=== PATIENT | female | born 1975 | race Caucasian/White ===

== ENCOUNTER 2018-05-07 15:59 | Emergency (ER) | payer BC ==
[2018-05-07 16:12] VITALS: TEMP 98.5
[2018-05-07] MEDS ORDERED: SODIUM CHLORIDE 0.9% 1,000 ML IV STA (17:11)
[2018-05-07] MEDS ORDERED: KETOROLAC 30 MG/ML 1 ML VIAL IVP STA (17:11)
[2018-05-07 17:59] LABS: Basophils % (A) 0 %; Eosinophils # (A) 0.1 k/uL (0-0.7); Eosinophils % (A) 1 %; HCT 35.7 % (34.0-46.0); HGB 11.5 gm/dL (11.4-16.0); Hypochromasia Slight; Lymphocytes # (A) 2.1 k/uL (1.0-4.8); Lymphocytes % (A) 28 %; MCHC 32.1 g/dL (31.0-37.0); MCV 81.1 fL (80.0-100.0); Mean Platelet Volume 7.1; Monocytes # (A) 0.5 k/uL (0-1.0); Monocytes % (A) 6 %; Neutrophils # (A) 4.6 k/uL (1.3-7.7); Neutrophils % (A) 62 %; Platelet Count 449 k/uL (150-450); RBC 4.41 m/uL (3.80-5.40); RDW 15.6 % (11.5-15.5); WBC 7.4 k/uL (3.8-10.6)
[2018-05-07 18:05] LABS: Albumin 4.2 g/dL (3.5-5.0); Calcium 9.8 mg/dL (8.4-10.2); Potassium 4.4 mmol/L (3.5-5.1); Total Bilirubin 0.3 mg/dL (0.2-1.3); Total Protein 7.5 g/dL (6.3-8.2)
[2018-05-07 18:06] LABS: Appearance,Urine Clear (Clear); Bacteria,Urine Rare /hpf; Bilirubin,Urine Negative (Negative); Blood,Urine Moderate (Negative); Color,Urine Yellow; Glucose,Urine (UA) Negative (Negative); Ketones,Urine Negative (Negative); Leukocyte Esterase,Urine Trace (Negative); Mucus,Urine Few /hpf; Nitrite,Urine Negative (Negative); Protein,Urine Trace (Negative); RBC,Urine 1 /hpf (0-5); Specific Gravity,Urine 1.018 (1.001-1.035); Squamous Epithelial Cell,Urine <1 /hpf (0-4); WBC,Urine 6 /hpf (0-5)
--- NOTE | 2018-05-07 18:58 | CT ---
EXAMINATION TYPE: CT abdomen pelvis wo con DATE OF EXAM: 05/07/2018 COMPARISON: None HISTORY: Left flank pain. CT DLP: 464.9 mGycm Automated exposure control for dose reduction was used. TECHNIQUE: Helical acquisition of images from the lung bases through the pelvis. FINDINGS: Lack of intravenous contrast could compromise sensitivity. Small umbilical hernia contains fat. LUNG BASES: No significant abnormality is appreciated. AORTA: No significant abnormality is appreciated. LIVER/GB: No significant abnormality is appreciated. PANCREAS: No significant abnormality is seen. SPLEEN: No significant abnormality is seen. ADRENALS: No significant abnormality is seen. KIDNEYS: Multiple flake-like calcifications are present in the bilateral kidneys, approximately 10-20 calcifications bilaterally, no evident ureteral calculus. REPRODUCTIVE ORGANS: No significant abnormality is seen. URINARY BLADDER: No significant abnormality is seen. BOWEL: No significant abnormality is seen. The appendix is normal. FREE AIR: No Free Air is visible. ASCITES: None visible. PELVIC ADENOPATHY: None visualized. RETROPERITONEAL ADENOPATHY: No Retroperitoneal Adenopathy visible. OSSEOUS STRUCTURES: No significant abnormality is seen. IMPRESSION: BILATERAL NONOBSTRUCTIVE NEPHROLITHIASIS. NONCONTRAST EXAM.
--- NOTE | 2018-05-07 19:17 | ED ---
Abdominal Pain HPI - General Chief Complaint: Abdominal Pain Stated Complaint: poss kidney stones Time Seen by Provider: 05/07/18 16:39 Source: patient, RN notes reviewed, old records reviewed Mode of arrival: ambulatory Limitations: no limitations - History of Present Illness Initial Comments: This is a 42-year-old female the ER for evaluation of pain abdominal pain which she presented to emetics rest 4, patient had blood in her urine emetics rest sent ER for evaluation of flank pain left flank pain maybe possible kidney stone pain. Patient currently denying any significant abdominal pain, no nausea vomiting, no fevers no diarrhea or difficulty with urination. No blood in her urine MD Complaint: abdominal pain, flank pain (() -: days(s) Location: LLQ, suprapubic Radiation: none Migration to: no migration Severity: mild Severity scale (1-10): 1 Quality: aching Consistency: now resolved Improves With: nothing Worsens With: nothing Associated Symptoms: denies other symptoms - Related Data Home Medications Medication Instructions Recorded Confirmed No Known Home Medications 05/07/18 05/07/18 Allergies Allergy/AdvReac Type Severity Reaction Status Date / Time No Known Allergies Allergy Verified 05/07/18 16:30 Review of Systems ROS Statement: Those systems with pertinent positive or pertinent negative responses have been documented in the HPI. ROS Other: All systems not noted in ROS Statement are negative. Past Medical History Past Medical History: No Reported History History of Any Multi-Drug Resistant Organisms: None Reported Past Surgical History: No Surgical Hx Reported Past Psychological History: No Psychological Hx Reported Smoking Status: Current every day smoker Past Alcohol Use History: None Reported Past Drug Use History: None Reported General Exam Limitations: no limitations General appearance: alert, in no apparent distress Head exam: Present: atraumatic, normocephalic, normal inspection Eye exam: Present: normal appearance, PERRL, EOMI. Absent: scleral icterus, conjunctival injection, periorbital swelling ENT exam: Present: normal exam, mucous membranes moist Neck exam: Present: normal inspection. Absent: tenderness, meningismus, lymphadenopathy Respiratory exam: Present: normal lung sounds bilaterally. Absent: respiratory distress, wheezes, rales, rhonchi, stridor Cardiovascular Exam: Present: regular rate, normal rhythm, normal heart sounds. Absent: systolic murmur, diastolic murmur, rubs, gallop, clicks GI/Abdominal exam: Present: soft, normal bowel sounds. Absent: distended, tenderness, guarding, rebound, rigid Extremities exam: Present: normal inspection, full ROM, normal capillary refill. Absent: tenderness, pedal edema, joint swelling, calf tenderness Back exam: Present: normal inspection Neurological exam: Present: alert, oriented X3, CN II-XII intact Psychiatric exam: Present: normal affect, normal mood Skin exam: Present: warm, dry, intact, normal color. Absent: rash Course Vital Signs 05/07/18 05/07/18 16:09 19:26 Temperature 98.5 F Pulse Rate 79 82 Respiratory 18 16 Rate Blood Pressure 123/81 125/50 O2 Sat by Pulse 99 100 Oximetry - Reevaluation(s) Reevaluation #1: Transfer paperwork reviewed Patient having no pain Medical Decision Making - Medical Decision Making 40 female the ER for evaluation of kidney stones. CT head and pelvis negative for acute disease urine negative patient can be discharged home - Lab Data Result diagrams: 05/07/18 17:20 05/07/18 17:20 Lab Results 05/07/18 05/07/18 05/07/18 Range/Units 17:20 17:20 17:20 WBC 7.4 (3.8-10.6) k/uL RBC 4.41 (3.80-5.40) m/uL Hgb 11.5 (11.4-16.0) gm/dL Hct 35.7 (34.0-46.0) % MCV 81.1 (80.0-100.0) fL MCH 26.0 (25.0-35.0) pg MCHC 32.1 (31.0-37.0) g/dL RDW 15.6 H (11.5-15.5) % Plt Count 449 (150-450) k/uL Neutrophils % 62 % Lymphocytes % 28 % Monocytes % 6 % Eosinophils % 1 % Basophils % 0 % Neutrophils # 4.6 (1.3-7.7) k/uL Lymphocytes # 2.1 (1.0-4.8) k/uL Monocytes # 0.5 (0-1.0) k/uL Eosinophils # 0.1 (0-0.7) k/uL Basophils # 0.0 (0-0.2) k/uL Hypochromasia Slight Sodium 139 (137-145) mmol/L Potassium 4.4 (3.5-5.1) mmol/L Chloride 106 (98-107) mmol/L Carbon Dioxide 26 (22-30) mmol/L Anion Gap 7 mmol/L BUN 15 (7-17) mg/dL Creatinine 1.04 (0.52-1.04) mg/dL Est GFR (CKD-EPI)AfAm 77 (>60 ml/min/1.73 sqM) Est GFR (CKD-EPI)NonAf 67 (>60 ml/min/1.73 sqM) Glucose 94 (74-99) mg/dL Calcium 9.8 (8.4-10.2) mg/dL Total Bilirubin 0.3 (0.2-1.3) mg/dL AST 20 (14-36) U/L ALT 22 (9-52) U/L Alkaline Phosphatase 92 (38-126) U/L Total Protein 7.5 (6.3-8.2) g/dL Albumin 4.2 (3.5-5.0) g/dL Amylase 58 (30-110) U/L Lipase 129 (23-300) U/L Urine Color Yellow Urine Appearance Clear (Clear) Urine pH 6.0 (5.0-8.0) Ur Specific [place] 1.018 (1.001-1.035) Urine Protein Trace H (Negative) Urine Glucose (UA) Negative (Negative) Urine Ketones Negative (Negative) Urine Blood Moderate H (Negative) Urine Nitrite Negative (Negative) Urine Bilirubin Negative (Negative) Urine Urobilinogen 3.0 (<2.0) mg/dL Ur Leukocyte Esterase Trace H (Negative) Urine RBC 1 (0-5) /hpf Urine WBC 6 H (0-5) /hpf Ur Squamous Epith Cells <1 (0-4) /hpf Urine Bacteria Rare H (None) /hpf Urine Mucus Few H (None) /hpf - Radiology Data Radiology results: report reviewed (CT abdomen pelvis negative for acute disease ), image reviewed Disposition Clinical Impression: Abdominal pain Disposition: HOME SELF-CARE Condition: Good Instructions: Abdominal Pain (ED) Is patient prescribed a controlled substance at d/c from ED?: No Referrals: None,Stated [Primary Care Provider] - 1-2 days
[2018-05-07 19:27] VITALS: BP 125/50; PULSE 82; RESP 16
== END 2018-05-07 19:28 | disposition home or self-care (01) ==
LOC: EC 15:59
DX: R10.32 Left lower quadrant pain (principal); R31.9 Hematuria, unspecified; F17.200 Nicotine dependence, unspecified, uncomplicated
CPT/HCPCS: 36415; 80053; 82150; 83690; 85025; 81001; 87086; 74176; 99284; 96374; 96361; J1885

== ENCOUNTER → 2019-06-27 | Outpatient (CLI) | payer OTHER ==
--- NOTE | 2019-06-27 11:07 | CT ---
EXAMINATION TYPE: CT chest w con DATE OF EXAM: 06/27/2019 COMPARISON: None HISTORY: 43-year-old female with Chest pains TECHNIQUE: Contiguous axial scanning of the chest after the administration of 100 mL of Isovue 300. Coronal/sagittal reconstructions performed. CT DLP: 226.6mGycm. Automatic exposure control utilized for a dose reduction. FINDINGS: Heart normal size without pericardial effusion. Aorta normal caliber with conventional arch vessel branching anatomy. There is anterior mediastinal nodularity measuring 1.2 cm and 1.3 cm. A small 6 mm focus of calcifica tion is present here as well. Otherwise, no additional thoracic lymphadenopathy. No consolidation or pleural effusion. Tiny hiatal hernia. A couple hypodensities measuring up to 9 mm superior and lateral aspect of the sp sophy probably cysts. They seem to have been subtly present in retrospect on 05/07/2018. However, a we dge-shaped area of peripheral hypodensity is also present along the lower pole, also appears to prese nt previously. Possible contour variation or old area of peripheral infarct. Bilateral renal calculi measuring up to 4 mm. Area of heterogeneous enhancement is present along the posterior aspect of the upper pole left kidney . Bones: Mild degenerative change at the sternomanubrial joint. No osseous destructive process. IMPRESSION: 1. No acute pulmonary process. 2. Anterior mediastinal nodularity measuring 1.3 cm and 1.2 cm. Mildly enlarged nonspecific mediastin al lymph nodes are possible. Thymic remnants or other soft tissue of thymic origin are also possible. Recommend 3 month follow-up CT to ensure stability. 3. A vague area of heterogeneous hypodensity medial upper pole left kidney. Recommend correlation to exclude pyelonephritis. If no clinical signs/symptoms of pyelonephritis, nonemergent follow-up ultras ound or renal mass protocol CT/MRI would be recommended. 4. Bilateral nephrolithiasis. 5. Tiny hiatal hernia.
== END | disposition home or self-care (01) ==
LOC: RADCTMAIN 10:21
PROVIDERS: ATTEND Family Medicine
DX: K44.9 Diaphragmatic hernia without obstruction or gangrene (principal); J98.59 Other diseases of mediastinum, not elsewhere classified; J44.9 Chronic obstructive pulmonary disease, unspecified
CPT/HCPCS: 71260; Q9967

== ENCOUNTER → 2021-01-06 | Outpatient (CLI) | payer BC ==
--- NOTE | 2021-01-07 09:41 | CT ---
EXAMINATION TYPE: CT abdomen pelvis w con DATE OF EXAM: 01/06/2021 COMPARISON: 05/07/2018 INDICATION: abd pain x5 years DLP: 1045.60 mGycm, Automated exposure control for dose reduction was used. CONTRAST: 100 mL of Isovue 300. Study performed with Oral Contrast TECHNIQUE: Axial images were obtained from above the diaphragm to the pubic rami in the axial plane a t 5 mm thick sections. Reconstructed images are reviewed on the computer in the coronal plane. FINDINGS: Limited CT sections are obtained the lung bases. The lung bases are clear. CT ABDOMEN: Liver: Normal Spleen: There is a 0.6 cm cystlike area within the superior spleen. Additional cyst in the midportion measuring 0.5 cm. Pancreas: Normal Adrenal glands: The adrenal glands are normal. Gallbladder: Normal Kidneys: No masses are evident. No hydronephrosis is present. No cysts are present. Delayed images were obtained through the kidneys, which remain unremarkable. Patient's known renal stones are parti ally visualized during the early contrast phase of this examination. No obstruction is evident. Aorta: Normal Inferior vena cava: Normal. CT PELVIS: Loops of bowel within the abdomen and pelvis are normal. There are loops of bowel which are incom pletely distended or lack oral contrast limiting their evaluation. Appendix: Normal as visualized. Urinary bladder: Normal. Genitourinary structures: Uterus is normal. Follicles are on the left ovary. Right ovary appears norm al. Osseous structures: No suspicious lytic or sclerotic lesions. IMPRESSIONS: 1. No suspicious acute abnormality CT abdomen and pelvis. 2. Bilateral renal stones better visualized previously.
== END | disposition home or self-care (01) ==
LOC: RADCTMAIN 15:08
PROVIDERS: ATTEND Family Medicine
DX: R10.30 Lower abdominal pain, unspecified (principal); R19.7 Diarrhea, unspecified; Z87.442 Personal history of urinary calculi
CPT/HCPCS: 74177; Q9967

== ENCOUNTER → 2021-11-17 | Outpatient (CLI) | payer BC ==
--- NOTE | 2021-11-17 10:11 | US ---
EXAMINATION TYPE: US abdomen complete DATE OF EXAM: 11/17/2021 COMPARISON: NONE CLINICAL HISTORY: R10.84 GENERALIZED ABDOMINAL PAIN. Intermittent abdominal pain for 5 years, getting worse. Nausea EXAM MEASUREMENTS: Liver Length: 17.4 cm Gallbladder Wall: 0.3 cm CBD: 0.4 cm Spleen: 8.4 cm Right Kidney: 10.5 x 4.8 x 4.4 cm Left Kidney: 10.6 x 4.7 x 4.7 cm Pancreas: Obscured by bowel gas Liver: appears wnl Gallbladder: stones noted Evidence for sonographic Serrano's sign: no CBD: appears wnl Spleen: cystic area superior = 0.7cm. hyperechoic area inferior = 1.0cm. Hyperechoic area within the spleen is nonspecific. No shadowing is evident. Correlate for hemangioma. Right Kidney: echogenic foci noted Left Kidney: echogenic foci noted Upper IVC: wnl Abd Aorta: wnl IMPRESSION: 1. Splenic cyst. 2. Hyperechoic area within the spleen is nonspecific. No shadowing is evident. Correlate for hemangio ma. 3. Cholelithiasis. No acute cholecystitis evident. 4. Hepatomegaly.
--- NOTE | 2021-11-18 14:50 | MM ---
Reason for Exam: Screening (asymptomatic). Baseline mammogram. Patient History: Menarche at age 12. First Full-Term at age 21. Premenopausal. Paternal grandmother had breast cancer. Risk Values: Jaelyn 5 year model risk: 0.8%. NCI Lifetime model risk: 8.5%. Film Views: Bilateral CC views were taken. Bilateral MLO views were taken. Prior Study Comparison: Patient's first Mammogram. Tissue Density: The breast tissue is heterogeneously dense. This may lower the sensitivity of mammography. Findings: Analyzed By CAD. There is no suspicious group of microcalcifications or new suspicious mass in either breast. Overall Assessment: Benign, BI-RAD 2 Management: Screening Mammogram of both breasts in 1 year. A clinical breast exam by your physician is recommended on an annual basis and results should be correlated with mammographic findings. Electronically signed and approved by: Costa Gaffney M.D. Radiologis
== END | disposition home or self-care (01) ==
LOC: RADUSWWP 08:54
PROVIDERS: ATTEND Family Medicine
DX: Z12.31 Encounter for screening mammogram for malignant neoplasm of breast (principal); R10.84 Generalized abdominal pain
CPT/HCPCS: 76700; 77067

== ENCOUNTER 2024-02-02 07:35 | Emergency (ER) | payer SELFPAY ==
[2024-02-02] MEDS ORDERED: BACITRACIN OINT 1 EACH PACKET TOPICAL ONE (08:26)
== END 2024-02-02 08:50 | disposition home or self-care (01) ==
LOC: EC 07:35
CPT/HCPCS: 99282